=== PATIENT | male | born 1975 | race Caucasian/White ===

== ENCOUNTER 2024-02-16 10:12 | Emergency (ER) | payer MEDICAID ==
[~2024-02-16] VITALS: Ht 167.6 cm; Wt 91.0 kg
[2024-02-16 10:31] VITALS: TEMP 98.4; O2SAT 96
[2024-02-16 11:43] LABS: BASOPHILS % 2.8 % (0.0-2.0); DIFFERENTIAL COMMENT 0; EOSINOPHILS % 9.9 % (0.0-5.0); HEMATOCRIT. 49.5 % (42.0-52.0); HEMOGLOBIN. 16.5 g/dL (14.0-18.0); LYMPHOCYTES % 29.3 % (20.0-50.0); MEAN CORPUSCULAR HEMOGLOBIN 33.6 pg (28.0-32.0); MEAN CORPUSCULAR HGB CONC 33.3 g/dL (31.0-37.0); MEAN CORPUSCULAR VOLUME 100.9 fL (80.0-94.0); MEAN PLATELET VOLUME 6.9 fl (7.4-10.4); MONOCYTES % 8.7 % (2.0-8.0); NEUTROPHILS % 49.3 % (40.0-76.0); PLATELET 230 x1000/uL (130-400); RED BLOOD CELL COUNT 4.91 mill/uL (4.7-6.1); RED CELL DISTRIBUTION WIDTH 14.9 % (11.6-14.6); WHITE BLOOD COUNT 4.1 x1000/uL (4.5-11.0)
[2024-02-16 12:01] LABS: CHLORIDE 109 mEq/L (98-107); SODIUM 140 mEq/L (136-145)
[2024-02-16 12:02] LABS: CALCIUM 9.3 mg/dL (8.7-10.4); CARBON DIOXIDE 26 mEq/L (21-32)
[2024-02-16 12:07] LABS: GLUCOSE 96 mg/dL (70-105); UREA NITROGEN BLOOD 15 mg/dL (9-23)
[2024-02-16] MEDS ORDERED: AZIT200S40 MT (14:01)
[2024-02-16] MEDS ORDERED: TUSSL PO (14:01)
[2024-02-16 14:19] VITALS: BP 114/80; PULSE 81; RESP 14
== END 2024-02-16 14:22 | disposition home or self-care (01) ==
LOC: EDBD 10:12 → ER 10:12
DX: R60.9 Edema, unspecified (principal); J20.9 Acute bronchitis, unspecified; Q90.9 Down syndrome, unspecified
CPT/HCPCS: 36415; 71045; 80048; 83880; 85025; 93005; 93970; 99285